=== PATIENT | male | born 1955 | race Caucasian/White ===

== ENCOUNTER 2019-08-28 02:41 | Outpatient (CLI) | payer OTHER, SELFPAY ==
--- NOTE | 2019-08-28 14:15 | DI.DEXA_ITS ---
EXAM: XR DEXA BONE DENSITY W/WO PARAS CLINICAL HISTORY: AT RISK FOR OSTEOPOROSIS/SCREEN FOR OSTEOPOROSIS, Z13.820, Z91.89 TECHNIQUE: COMPARISON: No exams were available for comparison FINDINGS: Lateral Spine Image: Unremarkable. No compression deformities identified. Left hip: Total T-Score: -0.1 Total Z-Score: 0.4 T- and Z-scores: Within normal limits. Lumbar Spine: Total T-Score: 0.0 Total Z-Score: 0.7 T- and Z-scores: Within normal limits. IMPRESSION: No evidence of osteoporosis.
== END 2019-08-28 03:01 ==
PROVIDERS: PCP Student in an Organized Health Care Education/Training Program; Visit Provider Student in an Organized Health Care Education/Training Program
DX: Z13.820 Encounter for screening for osteoporosis (principal)
CPT/HCPCS: 77080

== ENCOUNTER 2019-09-13 01:53 | Outpatient (CLI) | payer OTHER, SELFPAY ==
--- NOTE | 2019-09-13 10:15 | DI.US_ITS ---
EXAM: US SCROTUM CLINICAL HISTORY: left scrotal swelling, N43.3-hydrocele TECHNIQUE: Ultrasound performed using standard protocol. COMPARISON: No exams were available for comparison FINDINGS: Scrotal ultrasound was performed according to the usual protocol. The testes are unremarkable in ech otexture and show normal symmetrical vascular flow, no intra testicular mass identified. There is a small right hydrocele. There is a fluid collection adjacent to the left testis which is s eptated or loculated. I am uncertain whether this may represent septated epididymal head cyst versu s septated left hydrocele. No solid mass identified. No significant abnormality of vascular flow a ssociated with the epididymi. IMPRESSION: Left intrascrotal cyst or hydrocele, no abnormality of the testes identified. DATA REPOSITORY:
== END 2019-09-13 02:13 ==
PROVIDERS: PCP Student in an Organized Health Care Education/Training Program; Visit Provider Nurse Practitioner Gerontology
DX: N50.89 Other specified disorders of the male genital organs (principal); N43.3 Hydrocele, unspecified
CPT/HCPCS: 76870

== ENCOUNTER 2019-09-13 10:08 | Outpatient (CLI) | payer OTHER, SELFPAY ==
[2019-09-14 11:32] LABS: PSA, Screening 0.3 ng/mL (0.0-4.5)
== END 2019-09-13 10:28 ==
PROVIDERS: PCP Student in an Organized Health Care Education/Training Program; Visit Provider Nurse Practitioner Gerontology
DX: N13.8 Other obstructive and reflux uropathy (principal); N40.1 Benign prostatic hyperplasia with lower urinary tract symptoms; Z80.42 Family history of malignant neoplasm of prostate; Z12.5 Encounter for screening for malignant neoplasm of prostate
CPT/HCPCS: 84153

== ENCOUNTER → 2020-09-15 09:15 | Outpatient (BNVA) | payer OTHER, MEDICARE, SELFPAY | PROVIDERS: PCP Student in an Organized Health Care Education/Training Program; Referring Provider Student in an Organized Health Care Education/Training Program; Visit Provider Nurse Practitioner Gerontology | DX: R69 Illness, unspecified | CPT/HCPCS: 99214 ==

== ENCOUNTER 2021-05-22 03:57 | Outpatient (CLI) | payer OTHER, MEDICARE, SELFPAY ==
[2021-05-22 09:21] LABS: ALT 30 U/L (16-63); AST 22 U/L (15-37); Albumin 3.8 g/dL (3.4-5.0); Alkaline Phosphatase 68 U/L (46-116); Anion Gap 5.6 mmol/L (3-11); BUN 15 mg/dL (7-18); Bilirubin, Total 0.5 mg/dL (0.2-1.0); CO2 30.4 mmol/L (21.0-32.0); CREATININE 0.9 mg/dL (0.70-1.30); Calcium 8.7 mg/dL (8.5-10.1); Calculated LDL 117 mg/dL (<100); Chloride 104 mmol/L (98-107); Cholesterol 181 mg/dL (<200); Glucose 95 mg/dL (74-106); HDL Cholesterol 47 mg/dL (40-60); Potassium 4.2 mmol/L (3.5-5.1); Sodium 140 mmol/L (136-145); Total Protein 6.5 g/dL (6.4-8.2); Triglyceride 88 mg/dL (<150)
== END 2021-05-22 03:58 | disposition home or self-care (01) ==
LOC: LBO 03:58
PROVIDERS: PCP Student in an Organized Health Care Education/Training Program; Visit Provider Student in an Organized Health Care Education/Training Program
DX: Z13.220 Encounter for screening for lipoid disorders (principal); I10 Essential (primary) hypertension; N28.9 Disorder of kidney and ureter, unspecified
CPT/HCPCS: 36415; 80053; 80061

== ENCOUNTER → 2021-12-11 12:26 | Outpatient (CLI) | payer OTHER, SELFPAY ==
--- NOTE | 2021-12-11 12:42 | DI.RAD_ITS ---
Exam(s) XR CERVICAL SP COMP W FLEX/EXT EXAM: XR CERVICAL SP COMP W FLEX/EXT CLINICAL HISTORY: CERVICALGIA--M54.2, CERVICAL ROOT DISORDERS--G54.2. TECHNIQUE: 2D digital imaging was performed. COMPARISON: No exams were available for comparison FINDINGS: BONES: No fracture or destructive lesion. Vertebral bodies are unremarkable. DISKS: Mild narrowing of the C4-5 disc space. Moderate narrowing of the C 5 6 and C6-7 disc spaces. Endplate osteophytes are noted at these levels. This causes neural foraminal encroachment, greatest at on the right at C6-7 and on the left at C5-6. ALIGNMENT: Cervical spinal alignment is within normal limits. The odontoid and atlantoaxial articulat ions are normal. SOFT TISSUE: Normal. The lung apices are clear. IMPRESSION: Degenerative disc changes from C4-5 through C6-7 causing bilateral neural foraminal narrowing. DATA REPOSITORY: RADIATION DOSE DELIVERED:
--- NOTE | 2021-12-11 12:43 | DI.RAD_ITS ---
Exam(s) XR SHOULDER LT COMPLETE 2+V EXAM: XR SHOULDER LT COMPLETE 2+V CLINICAL HISTORY: OSTEOARTHRITIS--M19.012, BICIPITAL TENDINITIS--M75.22. TECHNIQUE: 2D digital imaging was performed. Three views. COMPARISON: No exams were available for comparison FINDINGS: BONES: No acute fracture is present. No bony destructive lesion is seen. Prior rotator cuff tendon r epair. Minimal spurring at greater and lesser tuberosities. JOINTS: No dislocation present. No significant spurring at the AC joint. Glenohumeral joint space i s well maintained. SOFT TISSUE: Normal. No tendon or joint space calcifications are seen. IMPRESSION: Mild degenerative changes. DATA REPOSITORY: RADIATION DOSE DELIVERED:
--- OUTSIDE RECORDS SUMMARY | 2021-12-11 13:05 | XMS_ITS | Encounter Summary ---
:1955 Author Organization [facility] [place] [address] Care Team Providers Name Role Phone Saida Green DO Primary Care Provider Encounter Details Date Type Department Care Team Description 09/12/2019 Telephone Audiology at [facility] Pamela Ku [facility] [place] [address] Social History Tobacco Use Types Packs/Day Years Used Date Never Smoker Sex Assigned at Date Recorded Not on file documented as of this encounter Miscellaneous Notes Telephone Encounter - Pamela Ku - 09/12/2019 10:10 AM EDT Called patient to schedule [facility]. Patient is pursuing Hearing Aids closer to home so appointments not needed. documented in this encounter Plan of Treatment Not on filedocumented as of this encounter Visit Diagnoses Not on filedocumented in this encounter Care Teams Print And Pattern Designer Relationship Specialty Start Date End Date Saida Green DO PCP - General Family Medicine 01/19/[address] [place] [address] documented as of this encounter
--- OUTSIDE RECORDS SUMMARY | 2021-12-11 13:05 | XMS_ITS | Encounter Summary ---
:1955 Author Organization [facility] Address [address] [place] [address] Care Team Providers Name Role Phone Saida Green DO Primary Care Provider Reason for Visit Consultation (Routine) - Specialty Diagnoses / Procedures Referred By Contact Refer red To Contact Audiology Diagnoses Tinnitus, bilateral Otalgia, right ear Unspecified hearing loss, unspecified ear Saida Green DO Perez, Ashley N, AUD [address] [place], [place] [address] [place] [address] Fax: Referral ID Status Reason Start Date Expiration Date Visits V isits Requested Authorized [id number] Consult, Test 08/21/2019 08/20/2020 [facility] PCP Updated and/or Approved Encounter Details Date Type Department Care Team Description 08/23/2019 Office Visit [place] [facility] Ciarra Esquivel, Tinnitus of right ear; [facility] Right ear pain; [facility] Bilateral asymmetric sensori neural hearing loss [facility] [id number] AUDIOLOGY DEPT [phone] [place], [place] [address] Social History Tobacco Use Types Packs/Day Years Used Date Never Smoker Sex Assigned at Date Recorded Not on file documented as of this encounter Progress Notes Ciarra Esquivel, QUIQUE - 08/23/2019 11:00 AM EDT AUDIOLOGY SECTION AUDIOLOGIC EVALUATION Name: Unruly Vega Age: 64 y.o. Referring provider: Saida Green DO Date: 08/23/2019 Reason for referral/visit: Evaluation of hearing loss History: Mr. Vega is a new patient to the Audiology Section. He dropped a piece of metal on the cement floor next to his right ear last summer 2018. He immediately noted tinnitus, otalgia and decreased hearing. Today he reported that he still has tinnitus even now, though it is no longer as bothersome. The right ear had pain for a while afterwards. He had a hearing test through [facility] on 08/29/2018which revealed slightly asymmetric SNHL and he was evaluated by Dr. Arenas in ENT. Otologic symptoms: -Middle ear pathology: Denied -Dizziness: Denied -Familial hearing loss: Denied -Trauma of the head/neck: Denied -Surgery of the head/neck: Denied -Noise exposure: wearing HPDs now but not in the past. He uses power tools, has a large rob to ringoutstide for the dog that is very loud. He plugs his right ear when he rings the rob. EVALUATION: (please refer to audiogram) RESULTS/IMPRESSIONS: ?? Otoscopy was unremarkable, bilaterally. ?? Tympanometry indicated normal middle ear system function bilaterally. ?? Audiometric testing was consistent with asymmetric moderate high frequency sensorineural hearing loss L>R with a 25 dB asymmetry R>L. Word recognition was also slightly asymmetric with 84% on the right and 100% on the left at an elevated presentation level of 75-80 dB HL. ?? Hearing sensitivity is slightly poorer today compared to last year. ?? QuickSIN test was administered. He scored a +0.5 dB SNR loss. ?? The QuickSIN is a speech in noise test that measured the ability to hear in noise. Speech understanding in noise cannot be reliably predicted from the pure tone audiogram. SNR loss is the increased rqxvsg-yx-jvmmx ratio required by an individual to understand speech in noise, as compared to normal performance. The recorded sentences represent a realistic situation of a social gathering in which the listern may tune out the target talker and tune in one or more of the background talkers. ?? A normal hearing person requires about +2 dB SNR (target talker 2 dB louder than background babble talkers) to correctly repeat 50% of the fernandez words on the QuickSIN. Therefore, normal/near normal performance on the QuickSIN is a score of 0-3 dB SNR loss. A SNR loss of 3-7 dB indicates a mild SNR loss. A score of 7-15 dB indicates a moderate SNR loss. Greater than 15 dB indicates a severe SNR loss. ?? Today's results indicated substantial auditory based communication deficits. Individuals with high frequency hearing loss experience difficulty hearing clearly or accurately while listening in everyday environments including background noise. Given the degree and configuration of hearing loss, diffi culties are expected in hearing the high-frequency speech sounds of 's', 'f', and 'th'. Unruly Jaquez rely upon visual cues to fill in the gaps when speech sounds are not clear/audible in runningspeech. ?? Unruly Vega is a good candidate for amplification and general aural rehabilitation. He was givena packet [place] [facility] [place]. He would prefer to come here to for hearing aids. RECOMMENDATIONS: 1. Return to clinic for hearing aid consultation appointment. 2. Annual re-evaluation to monitor asymmetry; sooner if concerns arise. He has already been evaluated by ENT. 3. Use of communication strategies in noisy environments (i.e speaking face to face and reducing background noise). 4. Use of hearing protection when exposed to hazardous noise. Please do not hesitate to contact this Section at [phone] if there are questions regarding thisreport or its recommendations. Quique Babcock Board Cert[place] [address] Attachment: audiogram CC: Saida Green DO documented in this encounter Plan of Treatment Not on filedocumented as of this encounter Procedures Procedure Name Priority Date/Time Associated Comments Diagnosis COMPREHENSIVE HEARING Routine 08/23/2019 11:13 Re sults for this TEST AM EDT procedure are i n the results section. documented in this encounter Results Comprehensive hearing test (08/23/2019 11:13 AM EDT) Specimen (Source) Anatomical Collection Method Collection Time Re ceived Time Location / / Volume Laterality 08/23/2019 11:13 AM EDT Narrative [facility] - 08/23/2019 11:13 AM EDT See full report. Recorded MEEI. QuickSIN of +0.5 dB SNR loss at 75 dB HL. Procedure Note Unknown - 08/23/2019Formatting of this n ote might be different from the original. See full report. Recorded MEEI. QuickSIN of +0.5 dB SNR loss at 75 dB HL. Unknown AUDIOLOGY SERVICES ORDERABLE S Performing Organization Address City/State/ZIP Code Phon e Number [facility] documented in this encounter Visit Diagnoses Diagnosis Tinnitus of right ear Unspecified tinnitus Right ear pain Otalgia, unspecified Bilateral asymmetric sensorineural heari ng loss documented in this encounter Care Teams Materials Technician Relationship Specialty Start Date End Date Saida Green DO PCP - General Family Medicine 01/19/[address] [place] [address] documented as of this encounter
--- OUTSIDE RECORDS SUMMARY | 2021-12-11 13:05 | XMS_ITS | Encounter Summary ---
:1955 Author Organization [facility] [place] [address] Care Team Providers Name Role Phone Saida Green Primary Care Provider Reason for Visit Reason Comments Follow-up Encounter Details Date Type Department Care Team Description 01/19/2019 Office Visit Dermatology at [facility], Oliver u nguium; Juanito LEWIS Seborrheic keratosis; [address] [facility] Seborrheic dermatitis Silvestre B DERMATOLOGY [place], [place] [id number] [phone] Social History Tobacco Use Types Packs/Day Years Used Date Never Smoker Sex Assigned at Date Recorded Not on file documented as of this encounter Progress Notes Nathanael Marquis MD - 01/19/2019 8:45 AM EDT PROBLEM: 1. Skin checkup. 2. Left toenail tinea unguium. Unruly follows up and is now 63. He is concerned about his left hallux which continues to be a problem and about a spot on his right medial cheek, and about flaking and peeling behind his ears. Physical examination reveals ongoing tinea unguium of the left hallux. It is not completely responded and only partially responded to the thymol 3% in ethyl alcohol. He has a small seborrheic keratosisdeveloping on the right medial cheek. He has minor erythema scaling flaking consistent with seborrheic dermatitis in the conchal bowls of the ears and on the postauricular scalp bilaterally. Patient has type III Arenas pigmentation and he is a brown eyes. Assessment plan: Tinea unguium left toenail 1. Again discussed the option of more aggressive therapies 2. Both was agreed not to pursue this route 3. Reassured patient that no treatment is actually necessary. This is does not pose any medical riskto him. And he agrees Seborrheic keratosis right medial cheek 1. Discussed diagnosis 2. Patient reassured Seborrheic dermatitis, mild, ears and postauricular ears 1. Recommend use of an anti-dander shampoo for this 2. Also discussed the option of 1% cortisone cream to control it Benign facial examination 1. Patient reassured about the benign solar lentigos and early seborrheic keratoses 2. Return to clinic here as needed. documented in this encounter Plan of Treatment Not on filedocumented as of this encounter Visit Diagnoses Diagnosis Tinea unguium Dermatophytosis of nail Seborrheic keratosis Other seborrheic keratosis Seborrheic dermatitis Seborrheic dermatitis, unspecified documented in this encounter Care Teams Lean Manufacturing Specialist Relationship Specialty Start Date End Date Saida Green DO PCP - General Family Medicine 01/19/[address] [place] [address] documented as of this encounter
--- OUTSIDE RECORDS SUMMARY | 2021-12-11 13:05 | XMS_ITS | Encounter Summary ---
:1955 Author Organization [facility] [place] [address] Care Team Providers Name Role Phone Carlos Thompson MD Primary Care Provider Reason for Visit Reason Comments Skin Check Nail Problem Encounter Details Date Type Department Care Team Description 08/30/2016 Office Visit Dermatology at [facility] Nathanael Marquis MD Tinea unguium; [address] Sil[place]re [address] Solar [place] [address] [place] [address] [phone] (Wo rk) Social History Tobacco Use Types Packs/Day Years Used Date Never Smoker Sex Assigned at Date Recorded Not on file documented as of this encounter Progress Notes Nathanael aMrquis MD - 08/30/2016 11:30 AM EDT PROBLEM: 1. Skin checkup. 2. Left toenail tinea unguinum. Unruly is a 61-year-old gentleman whose I see. He would like to have a general skin checkup. Also he is bothered by discoloration of the medial left upper corner of his left hallux. He is referred today by Dr. Thompson. He does not have any personal or family history of skin cancer or melanoma. Physical examination reveals a pleasant 51-year-old gentleman who has brown eyes and graying dark hair. He has a number of solar lentigos present over the forehead, his cheeks, dorsal hands and forearms. There is no evidence of any malignant lesions. Examination of the head and the neck, the chest, the back, hands, arms, forearms, thigh and the calves is otherwise unremarkable. Also the buttocks where he has a single compound intradermal nevus on the left upper medial aspect of the buttocks. Examination of the toenail reveals whitish subungual hyperkeratotic debris and associated onycholysis of the upper medial aspect of one-third of the nail in a roughly triangular-like area. A/P: Benign skin examination. a. Reassured patient about benign skin examination today. b. Reinforced sun avoidance precautions which patient is trying to follow. 2. Tinea unguinum. a. Discussed the option of thymol 2% ethyl alcohol versus oral therapies. Would recommend first that we begin thymol and patient agrees. b. Apply thymol on a b.i.d. basis for 3 months using supplied brush that he can get with the prescription [facility]. Patient was given a prescription which he will fill there. They will dispense 30 mL with 5 refills. c. If this is not effective could consider the option of oral Lamisil. Patient does not think he would want to go that route. I would be happy to give him a 3-month trial, however, if he so desires. Return to clinic here p.r.n. Cc: Carlos Thompson MD documented in this encounter Plan of Treatment Not on filedocumented as of this encounter Visit Diagnoses Diagnosis Tinea unguium Dermatophytosis of nail Solar lentigo Other dyschromia documented in this encounter Care Teams Institution Librarian Relationship Specialty Start Date End Date Carlos Thompson MD PCP - General General Internal Medicine 08/30/[address] [place] [address] documented as of this encounter
--- OUTSIDE RECORDS SUMMARY | 2021-12-11 13:06 | XMS_ITS | Encounter Summary ---
:1955 Author Organization [facility] Address [address] [place] [address] Care Team Providers Name Role Phone Nathanael Silva MD Primary Care Provider Encounter Details Date Type Department Care Team Description 06/01/2016 Hospital Encounter [facility]- Ramya Unknown, Provider, [facility] [address] [phone] [place] [address] (Work) [phone] Social History Tobacco Use Types Packs/Day Years Used Date Never Assessed Alcohol Use Standard Drinks/Week Comments Yes 0 (1 standard drink = 0.6 oz pure alcoho l) 2-3 glasses most days Sex Assigned at Date Recorded Not on file documented as of this encounter Medications at Time of Discharge Medication Sig Dispensed Refills Start Date End Date aspirin chewable 81 mg Take 81 mg by mouth 0 tablet daily. DOCOSAHEXANOIC ACID/EPA Take by mouth. 0 (FISH OIL ORAL) ibuprofen (MOTRIN) 200 mg Take 200 mg by 0 tablet mouth every 6 hours. MEN'S MULTI-VITAMIN ORAL Take by mouth. 0 mometasone (NASONEX) 50 2 Sprays by Nasal 0 mcg/actuation nasal spray route daily. SAW PALMETTO XTR/ZINC Take by mouth. 0 PICOLIN (SAW PALMETTO EXTRACT ORAL) documented as of this encounter Discharge Disposition Disposition Code Departure Means Destination Home or Self Residential documented in this encounter Plan of Treatment Not on filedocumented as of this encounter Visit Diagnoses Not on filedocumented in this encounter Care Teams Railroad Car Inspector Relationship Specialty Start Date End Date Nathanael Silva MD PCP - General 06/02/11 06/02/16 [address] [place] [address] documented as of this encounter
--- OUTSIDE RECORDS SUMMARY | 2021-12-11 13:06 | XMS_ITS | Encounter Summary ---
:1955 Author Organization [facility] Address [address] [place] [address] Care Team Providers Name Role Phone Nathanael Silva MD Primary Care Provider Encounter Details Date Type Department Care Team Description 07/02/2011 Abstract [facility] Dickinson PA Upper Extremity Program - [facility] Jailene [place]am [place], [place] [address] Social History Tobacco Use Types Packs/Day Years Used Date Never Assessed Alcohol Use Standard Drinks/Week Comments Yes 0 (1 standard drink = 0.6 oz pure alcoho l) 2-3 glasses most days Sex Assigned at Date Recorded Not on file documented as of this encounter Plan of Treatment Not on filedocumented as of this encounter Visit Diagnoses Not on filedocumented in this encounter Care Teams Joint Yarner Relationship Specialty Start Date End Date Nathanael Silva MD PCP - General 06/02/11 06/02/16 [address] [place] [address] documented as of this encounter
--- OUTSIDE RECORDS SUMMARY | 2021-12-11 13:06 | XMS_ITS | Encounter Summary ---
:1955 [address] [facility] Address [address] [place] [address] Care Team Providers Name Role Phone Unavailable Primary Care Provider Unavailable Encounter Details Date Type Department Care Team Description 08/03/2006 Results Only [facility] - Eleno Quinonez MD conversion [address] [facility] [address] [place] [address] [place] [address] Social History Tobacco Use Types Packs/Day Years Used Date Never Assessed Sex Assigned at Date Recorded Not on file documented as of this encounter Plan of Treatment Not on filedocumented as of this encounter Procedures Procedure Name Priority Date/Time Associated Diagnosis Comme nts SURGICAL PATHOLOGY Routine 08/03/2006 0:00 EDT Re sults for this procedure are i n the results section. documented in this encounter Results SURGICAL PATHOLOGY (08/03/2006 0:00 EDT) Pathology Report: SURGICAL PATHOLOGY REPORT JEAN A SUMANTH Reports generated via electronic interface contain sienna ginal data; LAB however they are lacking the format of the original re port. Caution should be taken when reading/interpreting unfo rmatted reports. Name: ? UNRULY JACOB ? Accession #: ? [id number] ? : ? 1955 (Age: 51) ??M ? Collect Date: ? 08/03/2006 ? Location: ? [facility] ? Receive Date: ? 08/05/19 07 ? Provider: ELENO LAURA MD Copy to: ? Final Pathologic Diagnosis: A. ?Colon, at 85 cm, polyp, biopsy: 1. ?Tubular adenoma (3 pieces); no high g rade dysplasia. B. ?Colorectum, at 10 cm, polyp, biopsy: 1. ?Hyperplastic polyp (2 pieces); no hernan noma. Document reviewed and electronically signed by: Jack Weiner MD Report ??Date: 08/08/2006 17:16 By the signature above, the attending physician certif ies that he/she has personally conducted a gross and/or microscopic examin ation of the described specimens and rendered or confirmed the above diagnosi s. Specimen(s) Received: A. ?Polyps @ 85 cm B. ? Polyp @ 10 cm, x2 Clinical History: ? Polypoid lesions 85 cm, 10 cm; screening colono scopy Gross Description: ? Received in Hollande' s fixative labelled Zuk and A ??polyps at 85 cm are three pieces of tissue which range from 0.3 x 0.2 x 0.2 cm and 0.2 x 0.2 x 0.1 cm which are submitted intact as (A). Received in Hollande's fixative labelled Zuk and B ??polyp at 10 cm x2 are two pieces of tissue, each of which measure 0.3 x 0.2 x 0.2 cm which are submitted intact as (B). /tiffani End of Report Specimen Performing Organization Address City/State/ZIP Code Phon e Number [facility] [address] [place] [address] [facility] [address] [place] [address] documented in this encounter Visit Diagnoses Not on filedocumented in this encounter
--- OUTSIDE RECORDS SUMMARY | 2021-12-11 13:06 | XMS_ITS | Clinical Summary ---
:1955 Author Organization [facility] Address [address] [place] [address] Care Team Providers Name Role Phone Carlos Thompson MD Primary Care Provider Allergies Active Allergy Reactions Severity Noted Date Comments Sulfa (Sulfonamide Antibiotics) 2 Medications Medication Sig Dispensed Refills Start Date End Date Status ibuprofen (MOTRIN) 200 Take 200 mg by 0 Active mg tablet mouth every 6 hours. aspirin chewable 81 mg Take 81 mg by 0 Active tablet mouth daily. MEN'S MULTI-VITAMIN ORAL Take by mouth. 0 Active DOCOSAHEXANOIC ACID/EPA Take by mouth. 0 Active (FISH OIL ORAL) SAW PALMETTO XTR/ZINC Take by mouth. 0 Active PICOLIN (SAW PALMETTO EXTRACT ORAL) mometasone (NASONEX) 50 2 Sprays by 0 Active mcg/actuation nasal Nasal route spray daily. 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 Migraine since adolescence Family History Medical History Relation Name Comments Allergies Brother Heart Attack Brother Stroke Brother Heart Attack Father Relation Name Status Comments Brother Father Social History Tobacco Use Types Packs/Day Years Used Date Never Assessed Alcohol Use Standard Drinks/Week Comments Yes 0 (1 standard drink = 0.6 oz pure alcoho l) 2-3 glasses most days Sex Assigned at Date Recorded Not on file Plan of Treatment Health Maintenance Due Date Last Done Comments Fall Risk Screening 07/09/2020 Advance Directives For more information, please contact: [phone] Documents on File Type Date Recorded Patient Controls Project Engineer Explanati on Advance Directives and Living Will Power of Commissary Clerk Care Teams Police Liaison Relationship Specialty Start Date End Date Carlos Thompson MD PCP - General 06/03/16 [address] [place] [address]
--- OUTSIDE RECORDS SUMMARY | 2021-12-11 13:06 | XMS_ITS | Encounter Summary ---
:1955 Author Organization [facility] Address [address] [place] [address] Care Team Providers Name Role Phone Unavailable Primary Care Provider Unavailable Encounter Details Date Type Department Care Team Description 06/10/2005 Hospital Encounter [facility] Emergency, Emergency Department - MD [facility] [address] [place] [address] [place] [address] Social History Tobacco Use Types Packs/Day Years Used Date Never Assessed Sex Assigned at Date Recorded Not on file documented as of this encounter Discharge Disposition Disposition Code Departure Means Destination Home or Self Care documented in this encounter Plan of Treatment Not on filedocumented as of this encounter Procedures Procedure Name Priority Date/Time Associated Diagnosis Comme nts RAD US EXTREMITY 06/10/2005 21:29 Results for this NON VASCULAR EST procedure are i n the results section. CT LOWER EXTREMITY 06/10/2005 19:24 Resul ts for this WO CONTRAST EST procedure are i n the results section. documented in this encounter Results RAD US EXTREMITY NON VASCULAR (06/10/2005 21:29 EST) Anatomical Region Laterality Modality Other Specimen Narrative [facility] - 10/05/2008 10 :21 EDT POSSIBLE FOREIGN BODY. PAIN. R/O FOREIGN BODY. HISTORY: History of foreign body in the right upp er anterior thigh. EXAM: Right upper thigh ultrasound to evaluate for retained foreign body. FINDINGS: Images of the right upper anterior thigh in the area of traumatic injury to the skin demonstrates a linear echogenic structure which correlates with a foreign body. ??It vincenzo sures 6 cm. long and 4 mm. thick. ??It is located at the incision s ite on the skin and angles from there medially and superiorly towar d the groin. ??The proximal portion of the foreign body at the incis ion site is approximately 2 cm. deep and the distal aspect of the fo reign body closest to the groin is approximately 2.8 cm. deep. ??D oppler flow was placed over the area of the location of the foreign body and no major vascular structures are seen. IMPRESSION: 1. ?A 6 cm. ret ained foreign body consistent with splinter. D: ? 06/11/05 T: ? 06/11/05 /amn I have personally reviewed the images an d the above interpretation and agree with the findings. Procedure Note Janene Cohen DMD / Davin Patel MD - 10/05/2008 POSSIBLE FOREIGN BODY. PAIN. R/O FOREIG N BODY. HISTORY: History of foreign body in the right upp er anterior thigh. EXAM: Right upper thigh ultrasound to evaluate for retained foreign body. FINDINGS: Images of the right upper anterior thigh in the area of traumatic injury to the skin demonstrates a linear echogenic structure which correlates with a foreign body. It measu res 6 cm. long and 4 mm. thick. It is located at the incision sit e on the skin and angles from there medially and superiorly towar d the groin. The proximal portion of the foreign body at the incis ion site is approximately 2 cm. deep and the distal aspect of the fo reign body closest to the groin is approximately 2.8 cm. deep. Dop pler flow was placed over the area of the location of the foreign body and no major vascular structures are seen. IMPRESSION: 1. A 6 cm. retained foreign body consist ent with splinter. /amn I have personally reviewed the images an d the above interpretation and agree with the findings. Performing Organization Address City/State/ZIP Code Phon e Number [facility] [address] [facility] [address] [facility] [address] [place], [place] [address] [address] [address] LOWER EXTREMITY WO CONTRAST (06/10/2005 19:24 EST) Anatomical Region Laterality Modality Other Specimen Narrative [facility] - 10/05/2008 10 :21 EDT FORIEGN BODY, PAIN CT OF THE RIGHT THIGH WITHOUT CONTRAST. CLINICAL HISTORY: Foreign body and pain. TECHNIQUE: Axial images of the right thi gh were obtained from the lesser trochanter to the mid thigh. ??Co robb and sagittal reformatted images were done. FINDINGS: ??There is no evidence for a f oreign body. There is some air in the soft tissues on the anterior aspe ct of the right thigh with infiltration of the subcutaneous fat. No radiopaque foreign body is present. ??The muscles have a normal nawaf earance. D: ??06/11/05 T: ??06/14/05 /lds. Procedure Note Xiomara Cavazos MD - 10/05/2008 FORIEGN BODY, PAIN CT OF THE RIGHT THIGH WITHOUT CONTRAST. CLINICAL HISTORY: Foreign body and pain. TECHNIQUE: Axial images of the right thi gh were obtained from the lesser trochanter to the mid thigh. Mino nal and sagittal reformatted images were done. FINDINGS: There is no evidence for a for eign body. There is some air in the soft tissues on the anterior aspe ct of the right thigh with infiltration of the subcutaneous fat. No radiopaque foreign body is present. The muscles have a normal appea whit. /lds. Performing Organization Address City/State/ZIP Code Phon e Number [facility] [address] [facility] [address] [facility] [address] [place], [place] [address] documented in this encounter Visit Diagnoses Not on filedocumented in this encounter
--- OUTSIDE RECORDS SUMMARY | 2021-12-11 13:06 | XMS_ITS | Encounter Summary ---
:1955 Author Organization [facility] system Address [address] [place] [address] Care Team Providers Name Role Phone Nathanael Silva MD Primary Care Provider Encounter Details Date Type Department Care Team Description 06/01/2016 Results Only [facility] Ervin Rivers, DO [address] [facility] [address] [place], [place] [id number] (Wo rk) Social History Tobacco Use Types [...] Procedure Name Priority Date/Time Associated Diagnosis Comme [facility] SURGICAL PATHOLOGY Routine 06/01/2016 15:44 Resul ts for this EDT procedure are i n the results section. documented in this encounter Results SURGICAL PATHOLOGY (06/01/2016 15:44 EDT) Pathology Report: SURGICAL PATHOLOGY REPORT [facility] Reports generated via electronic interface contain sienna ginal data; LABORATORY however they are lacking the format of the original re port. SERVICES Caution should be taken when reading/interpreting unfo rmatted reports. Name: ? UNRULY JACOB ? Accession #: ? [id number] ? : ? 1955 (Age: 6 0) ??M ? Collect Date: ? 06/01/2016 ? Location: ? [facility] ? Receive Date: ? 06/03/19 17 ? Provider: REVIN RIVERS DO Copy to: VINICIUS PINEDO MD ? Final Pathologic Diagnosis: COLON, SIGMOID, POLYP, BIOPSY: - Colonic mucosa (1) with surface epithe lial hyperplastic change; negative for adenoma. - Portions of fecal material. Document reviewed and electronically signed by: Jack Weiner MD Report ??Date: 06/03/2016 12:15 By the signature above, the attending physician certif ies that he/she has personally conducted a gross and/or microscopic examin ation of the described specimens and rendered or confirmed the above diagnosi s. Specimen(s) Received: Sigmoid polyp Clinical History: Screening Gross Description: ? Received in formalin labelled with proper patient identification (initials Z, E) and sigmoid polyp is a cha-brow n nodular tissue (0.6 x 0.3 x 0.2 cm). Entirely submitted in 1. CHELSEA Arita (ASCP) 06/02/2016 4:33 PM End of Report Specimen Performing Organization Address City/State/ZIP Code Phon e Number [facility] [address] [place] [address] SERVICES documented in this encounter Visit Diagnoses Not on filedocumented in this encounter Care Teams Insulator Apprentice Relationship Specialty Start Date End Date Nathanael Silva MD PCP - General 06/02/11 06/02/16 [address] [place] [address] documented as of this encounter
--- OUTSIDE RECORDS SUMMARY | 2021-12-11 13:06 | XMS_ITS | Encounter Summary ---
:1955 Author Organization [facility] Address [address] [place] [address] Care Team Providers Name Role Phone Unavailable Primary Care Provider Unavailable Encounter Details Date Type Department Care Team Description 06/10/2005 Office Visit [facility] - Concepción Walton MD Maple conversion [address] [place] [address] [address], [place] [id number] (Wo rk) Social History Tobacco Use Types Packs/Day Years Used Date Never Assessed Sex Assigned at Date Recorded Not on file documented as of this encounter Progress Notes Javier Walton MD - 05/14/2009 1820 EST Department - Physician Summary Registration Date/Time: 06/10/2005 15:40 Historian - patient. HISTORY OF PRESENT ILLNESS Chief Complaint- Injury to right leg. Theinjury happened just prior to arrival. The patient sustained a puncture wound from a splinter (was carrying a sheet o f plywood and drove asliver through his pant leg). Occurred at home. Patient is experiencing moderate pain. No other injury. REVIEW OF SYSTEMS The patient sustained a laceration. Foreign body is suspected. He complains of pain on weight bearing. He has had swelling. No tingling, weakness or numbness. PAST HISTORY Negative. Tetanus immunization status is unknown. Medications: See nurses notes. Allergies: See nurses notes. SOCIAL HISTORY Nonsmoker. No alcohol use. ADDITIONAL NOTES The nursing notes have been reviewed. PHYSICAL EXAM Appearance: Alert. Patient in mild distress. With movement only. Vital Signs: Have been reviewed - Head: Head atraumatic. CVS: Pulses normal. Respiratory: No respiratory distress. Extremities: Lower extremity soft-tissue tenderness present (over sliver/hard prominence). Right thigh: moderate tenderness and deformity located in the medial aspect of upper thigh. Extremities otherwise negative. Gait: Normal gait. Neuro, Vascular, and Tendons: Vascular status intact. No pulse deficit present. Sensation intact. Motor intact. Tendon function intact. Neuro: Oriented X 3. No motor deficit. No sensory deficit. LABS, X-RAYS, AND EKG Note - Special Studies: Ct right leg nml--orfered after discussion with dr hills with radiology, whoagrees with a ct scan. After a neg ct, rads resident requests anther study--us bettter sesitivity us shows large fb from previous incision to neat the inguinal lig--no large vessels near fb per radioligy. PROGRESS AND PROCEDURES Removal of Soft Tissue Foreign Body: Wood. Located in the right thigh. Prior to the procedure the risks, benefits and alternatives to the procedure were explained. Local anesthesia provided using 1% lidocaine. Wound prepped with Betadine and sterile field employed. Wound explored and margins extended. Incision made with a #15 blade. Foreign body visualized, palpated and removed using forceps. Wound irrigated. The foreign body removal was moderately difficult. Procedural sedation not employed. Dressing applied. Tetanus immunization given. Removal of Soft Tissue Foreign Body #2: Wood. Prior to the procedure the risks, benefits and alternatives to the procedure were explained. Anesthesia provided using 1% lidocaine. Wound prepped with Betadine. Wound explored and margins extended. Incision made with a #15 blade. Foreign body palpated andremoved using forceps. Wound irrigated. Perforned with the orthopedics resident--Dr ojeda. The foreign body removal was moderately difficult. Dressing applied. Laceration Repair: Location: right thigh. Length: 2.2 cm. Wound depth/shape- subcutaneous. Exam note: incision during fb removal. Distal neuro/vascular/tendonstatus normal. Anesthesia provided using 1% lidocaine. Closure of superficial layer: interrupted 3-0nylon. Dressing applied. Laceration Repair #2: Location: right thigh. Length: 1 cm. Wound depth/shape- subcutaneous. Distal neuro/vascular/tendon status normal. Anesthesia provided using lidocaine. Prepped with Betadine. Wound irrigated with normal saline. Closure of superficial layer: 3-0 nylon. Dressing applied. E.D. Course: :54. Dr Ojeda in to eval for FB removal. FB found after neg ct and pos us. . Patient/family counseled. Disposition: Discharged home in good condition and improved condition. Discharged home in fair condition and improved condition. CLINICAL IMPRESSION Removal of wooden soft tissue foreign body. (It is unlikely that there is any large piece of wood left, but not impossible. Watch for infection). INSTRUCTIONS Elevate affected areas above chest level. Continue current medications. Important: INFECTION: Watch for signs of infection (increasing heat and redness, pus-like drainage, swelling, or increased pain). Return or see your doctor if these signs occur. TETANUS: You were givena tetanus shot in the emergency department. Make a note for future reference. Prescription Medications: Cephalexin 500 mg: take 1 tab orally every 8 hours for 5 days. No refill. Percocet 5 mg/325 mg: take 1-2 tablets orally every 6 hours as needed for pain. Dispense ten (10). Follow-up: Return to the emergency department for signs of infection as needed. Follow up with your doctor in 3-5 days for a recheck OR also if you develop signs of infection. (Electronically signed by Josiah Walton M.D. 06/12/2005 14:46) Department - Nursing Summary Registration Date/Time: 06/10/2005 15:40 TRIAGE Initial Assessment Triage time 15:41 . Acuity: LEVEL 3. BP: 139 / 95. HR: 84. RR: 14. --154 Marielena Varma R.N. Medications None. --1542 Marielena Varma R.N. Allergies ( sulfa). --1542 Marielena Varma R.N. Chief Complaint: INJURY TO RIGHT THIGH. The patient has foreign material (approx 2 sliver of wood). Pain level now: 8/10. PAST HX: Negative. SOCIAL HX: Nonsmoker. Arrived by private vehicle. Historian: patient. --1542 Marielena Varma R.N. SOCIAL HX: Occasional alcohol use. No report of abuse. --1545 Marielena Varma R.N. PAST HX: Last tetanus: ( may 2000). --1552 Marielena Varma R.N. NURSING PROGRESS NOTES Progress DT (DIPHTHERIA and TETANUS) 0.5 mL lot # [id number] exp date: 09/24 IM left anterior lateral thigh. . --1633 Richard Chauhan R.N. PERCOCET 1 tab PO. IBUPROFEN 800 mg PO. . --1633 Richard Chauhan R.N. Patient transported to [place] by stretcher with tech. --1917 Rachel Burns R.N. CEPHALEXIN 500 mg PO. . --1946 Benny Thomas The patient reports no complaints and the patient is calm and resting quietly. Patient returned fromCT by stretcher with tech. --1946 Rachel Burns R.N. ( pt in ultrasound ). --2104 Rachel Burns R.N. ( ortho at bedside). Patient returned from sonogram by stretcher with tech. --2142 Rachel Burns R.N. ( pt with 2 wood splinters removed by ortho, pt with wound dressed, ). The patient is calm and resting quietly. --2329 Rachel Burns R.N. DISPOSITION / DISCHARGE Condition at departure: improved. Fall risk assessment completed. No fall risk identified. No learning barriers present. Discharge instructions reviewed with the patient. Reviewed medication (cephalexin, percocet starter packs). Patient verbalized understanding. Written instructions provided in Cameroonian. The patient was discharged home and accompanied by senior category manager. The patient left the Emergency Department in a wheelchair and via private vehicle. Brass Instrument Repair Technician driving. --2330 Rachel Burns R.N. BP: 134 / 60 sitting. HR: 69. RR: 16. --2335 Benny Moreau R.N., R.N. Kimberly Nicolet R.N. Locked/Released at 06/10/2005 23:36 by Rachel Burns R.N. documented in this encounter Plan of Treatment Not on filedocumented as of this encounter Visit Diagnoses Not on filedocumented in this encounter
--- OUTSIDE RECORDS SUMMARY | 2021-12-11 13:06 | XMS_ITS | Encounter Summary ---
:1955 Author Organization [facility] Address [address] [place] [address] Care Team Providers Name Role Phone Carlos Thompson MD Primary Care Provider Encounter Details Date Type Department Care Team Description 09/13/2019 Lab Requisition [facility] Outr Resulting Lab, Pathology & Laboratory Provider [facility] [address] [id number] Social History Tobacco Use Types Packs/Day Years Used Date Never Assessed Alcohol Use Standard Drinks/Week Comments Yes 0 (1 standard drink = 0.6 oz pure alcoho l) 2-3 glasses most days Sex Assigned at Date Recorded Not on file documented as of this encounter Plan of Treatment Not on filedocumented as of this encounter Procedures Procedure Name Priority Date/Time Associated Comments Diagnosis PSA TOTAL, Routine 09/13/2019 10:12 Results for this DIAGNOSTIC EDT procedure are i n the results section. documented in this encounter Results PSA TOTAL, DIAGNOSTIC (09/13/2019 10:12 EDT) Pathologist Sig nature PSA 0.3 0.0 - 4.5 ng/mL [facility] Specimen Blood - Venous blood (substance) Narrative [facility] - 09/14/2019 11:27 EDT NOTE: Serum PSA concentration should not be in terpreted as absolute evidence for the presence or absence of malignant disease. Assayed on Siemens ADVIA Centaur XPT usi ng chemiluminescent technology.??Values obtained by using different assay methods cannot be used interchangeably. Performing Organization Address City/State/ZIP Code Phon e Number [facility] [address] [place] [address] SERVICES documented in this encounter Visit Diagnoses Not on filedocumented in this encounter Care Teams Java Technical Architect Relationship Specialty Start Date End Date Carlos Thompson MD PCP - General 06/03/[address] [place] [address] documented as of this encounter
== END ==
PROVIDERS: PCP Student in an Organized Health Care Education/Training Program; Visit Provider Student in an Organized Health Care Education/Training Program
DX: G54.2 Cervical root disorders, not elsewhere classified (principal); M54.2 Cervicalgia; M19.012 Primary osteoarthritis, left shoulder; M75.22 Bicipital tendinitis, left shoulder
CPT/HCPCS: 72052; 73030

== ENCOUNTER → 2023-02-03 04:09 | Outpatient (CLI) | payer OTHER, SELFPAY ==
--- NOTE | 2023-02-03 12:57 | DI.RAD_ITS ---
Exam(s) XR FOOT RT COMPLETE EXAM: XR FOOT RT COMPLETE CLINICAL HISTORY: rt foot pain, m79.671. TECHNIQUE: 2D digital imaging was performed. Three views. COMPARISON: CR XR FOOT LT COMPLETE from 02/03/2023 FINDINGS: BONES: No acute fracture is present. No bony destructive lesion is seen. Small heel spurs. JOINTS: No dislocation present. No significant degenerative changes. Plantar arch is maintained. SOFT TISSUE: Normal. IMPRESSION: Small heel spurs. DATA REPOSITORY: RADIATION DOSE DELIVERED:
--- NOTE | 2023-02-03 12:57 | DI.RAD_ITS ---
Exam(s) XR FOOT LT COMPLETE EXAM: XR FOOT LT COMPLETE CLINICAL HISTORY: Pain in left foot,hallux rigidus, hammer toe, m20.42,m20.22. TECHNIQUE: 2D digital imaging was performed. Three views. COMPARISON: CR XR FOOT RT COMPLETE from 02/03/2023 FINDINGS: BONES: No acute fracture is present. No bony destructive lesion is seen. Apparent prior resection of the distal aspect of the proximal phalanx of the 5th toe. Enthesophyte at calcaneal tuberosity. JOINTS: No dislocation present. Mild degenerative changes 1st MTP joint. Mild 1st metatarsal varus and hallux valgus. SOFT TISSUE: Normal. IMPRESSION: Mild hallux valgus. DATA REPOSITORY: RADIATION DOSE DELIVERED:
== END ==
PROVIDERS: PCP Student in an Organized Health Care Education/Training Program; Visit Provider Podiatrist
DX: M79.671 Pain in right foot (principal); M20.22 Hallux rigidus, left foot; M20.42 Other hammer toe(s) (acquired), left foot; M20.12 Hallux valgus (acquired), left foot; M77.31 Calcaneal spur, right foot
CPT/HCPCS: 73630

== ENCOUNTER 2024-05-31 09:48 | Outpatient (CLI) | payer OTHER, SELFPAY | END 2024-05-31 09:49 | disposition home or self-care (01) | LOC: DI.CARD 09:49 | PROVIDERS: PCP Family Medicine; Visit Provider Internal Medicine Cardiovascular Disease | CPT/HCPCS: 93010 ==

== ENCOUNTER 2024-06-05 08:27 | Outpatient (CLI) | payer OTHER, SELFPAY ==
--- NOTE | 2024-06-05 08:15 | RT.EKG_ITS ---
APPROVED REPORT Exam: Resting ECG Reason for Exam: SVT Patient Location: O HR:60 bpm ECG Measurements Heart Rate 60 AXIS VA 143 P 16 QRSd 88 QRS 36 QT 399 T 17 QTc 399 Conclusion Sinus rhythm...normal P axis, V-rate 50- 99 Atrial premature complexes...SV complexes w/ short R-R intvls Otherwise normal ECG
== END 2024-06-05 08:28 | disposition home or self-care (01) ==
LOC: DI.CARD 08:28
PROVIDERS: PCP Family Medicine; Visit Provider Internal Medicine Cardiovascular Disease
DX: I47.10 Supraventricular tachycardia, unspecified (principal)
CPT/HCPCS: 93010

== ENCOUNTER 2024-08-20 10:57 | Outpatient (CLI) | payer OTHER, SELFPAY ==
[2024-08-20 18:43] LABS: PSA, Screening 0.4 ng/mL (<=4.5)
== END 2024-08-20 10:58 | disposition home or self-care (01) ==
LOC: LBO 10:57
PROVIDERS: PCP Family Medicine; Visit Provider Nurse Practitioner Gerontology
DX: R39.9 Unspecified symptoms and signs involving the genitourinary system (principal)
CPT/HCPCS: 36415; 84153

== ENCOUNTER → 2025-02-13 00:38 | Outpatient (CLI) | payer MEDICARE, OTHER, SELFPAY ==
--- NOTE | 2025-02-13 12:30 | DI.US_ITS ---
APPROVED REPORT EXAM: Comprehensive 2D, Doppler, and color-flow Echocardiogram Patient Location: Out-Patient [employer] Operator: Alondra Rutherford RDCS (AE) Indications: Check aortic regurgitation Other Information Study Quality: Good Conclusion Normal left ventricular wall thickness and chamber size. Ejection fraction is 60 to 65%. Wall motion is normal Normal right ventricular size and function Mildly enlarged left atrium. Normal right atrial size Aortic valve is trileaflet with mild regurgitation Estimated right ventricular systolic pressure is 36 mmHg Ascending aorta measures 4 cm Wall motion Left Ventricle The left ventricle is normal size. The left ventricular systolic function is normal. The left ventricular ejection fraction is within the normal range. There is normal left ventricular wall thickness. There is normal LV segmental wall motion. There is no ventricular septal defect visualized. LVEF is 60-65%. Right Ventricle The right ventricle is normal size. The right ventricular systolic function is normal. Atria Left atrium is mildly dilated. The right atrium size is normal. The interatrial septum is intact with no evidence for an atrial septal defect. Aortic Valve The aortic valve is normal in structure. Aortic valve is trileaflet. There is no aortic valvular stenosis. Mild aortic regurgitation. Mitral Valve The mitral valve is normal in structure. No evidence of mitral valve stenosis. Trace mitral regurgitation. Tricuspid Valve The tricuspid valve is normal in structure. There is no tricuspid valve stenosis. Trace to mild tricuspid regurgitation. The RVSP is 35.6 mmHg. Pulmonic Valve The pulmonary valve is normal in structure. There is no pulmonic valvular stenosis. Trace pulmonic regurgitation. Great Vessels Aortic root is moderately dilated. The ascending aorta is moderately dilated. Aortic arch is normal in caliber. IVC is normal in size and collapses >50% with inspiration. Pericardium There is no pericardial effusion. 2D Dimensions IVSD d PLAX 0.90 cm M: 0.6-1.2 Ao Root d 4.16 cm M: 3.1 - 3.7 LVPW d PLAX 0.90 cm M: 0.6 - 1.2 Ao Asc Diam d 4.00 cm M: 2.6 - 3.4 LVID d PLAX 4.91 cm M: 4.2 - 5.8 LVDs 3.33 cm M: 2.5 - 4.0 LV EF Teichholz 60.1 % FS 32.09 % LV EDV (Teich) 113.2 mL LV ESV (Teich) 45.2 mL M-Mode TAPSE 2.55 cm (M/F) >1.7 Auto EF LV EDV A4C 95.1 mL LV EDV A2C 117.2 mL LV EDV BP 107.4 mL LV ESV A4C 38.3 mL LV ESV A2C 41.0 mL LV ESV BP 40.3 mL LVEF(%) A4C 59.7 % LVEF(%) A2C 65.0 % LVEF(%) BP 62.5 % LV SV A4C 56.8 ml LV SV A2C 76.1 ml LV SV BP 67.1 ml LV CO A4C 3.4 L/min LV CO A2C 3.8 L/min LV CO BP 3.6 L/min HR A4C 59.22 BPM HR A2C 49.44 BPM LV EDV Index (BP) LA Volume LA Length A4C 5.6 cm LA Length A2C 5.9 cm LA Area A4C s 19.11 cm2 LA Area A2C s 23.75 cm2 LA Vol A4C A-L 55.53 mL LA Vol A2C A-L 81.19 mL LA Vol Biplane A-L 69.0 mL LA Vol/BSA A4C A-L LA Vol/BSA A2C A-L LA Vol/BSA BP A-L 38.8 mL/m2 LA Vol A4C MOD 52.5 mL LA Vol A2C MOD 75.3 mL LA Vol BP MOD 64.5 mL RA Volume RA Area A4C 15.7 cm2 RA ESV A4C (A-L) 35.9mL RA Vol/BSA A4C A-L RA Length A4C 5.8 cm RA ESV A4C (MOD) 34.1mL LV Diastology MV E' medial 0.118 (>0.07 m/s) MV E Vmax 0.88 (0.4-1.3 m/s) MV E/E' MED 7.46 (<14) MV A Vmax 0.50 (0.4-1.3 m/s) MV E' lateral 0.087 (>0.1 m/s) E/A Ratio 1.8 MV E/E' LAT 10.13 (<14) MV E' Average 0.103 m/s MV E/E'(average) 8.59 Aortic Valve AoV Vmax 1.43 m/s LVOT Vmax 1.13 m/s AoV Peak Grad 44.4 mmHg LVOT Peak Grad 5.1 mmHg AoV Area (Vmax) 2.42 cm2 LVOT VTI 0.242 m AoV VTI 0.304 m LVOT Mean Grad 2.6 mmHg AoV Mean [place]. 0.94 m/s LVOT SV 74.35 mL AoV Mean Grad 4.1 mmHg LVOT Diam s 1.95 cm AoV Area (VTI) 2.44 cm2 AV Regurg Peak Gr. 8.23 mmHg Velocity Ratio 0.79 AR Decel [place] 1.2m/sec2 AR DT 3611 msec AR PHT 1047 msec AR Vmax 4.49 m/s Mitral Valve MV DT 233 (160-240 msec) MV Vmax TIPS 0.94 m/s MV Mean Grad 1.3 (<2mmHg) MV VTI 0.271 m Pulmonary Valve PV Vmax 0.95 (0.5-1.5 m/s) RVOT Vmax 0.68 m/s PV Peak Grad 3.6 mmHg RVOT Peak Gr. 1.8 mmHg PV Mean [place] 0.66 m/s RVOT VTI 0.159 m PV Mean Grad 2.0 mmHg RVOT Mean Gr. 1.1 mmHg Tricuspid Valve RA Pressure 3.00 mmHg TR Vmax 2.85 m/s TV S' 0.16 m/s TR Peak Grad 32.6 mmHg RVSP (TR) 35.6 mmHg
== END ==
LOC: DI 00:38
PROVIDERS: PCP Family Medicine; Visit Provider Internal Medicine Cardiovascular Disease
DX: I51.7 Cardiomegaly (principal)
CPT/HCPCS: 93306

== ENCOUNTER → 2025-03-08 09:32 | Outpatient (BNVA) | payer MEDICARE, OTHER, SELFPAY | PROVIDERS: PCP Family Medicine; Referring Provider Family Medicine; Visit Provider Internal Medicine Cardiovascular Disease | DX: I35.1 Nonrheumatic aortic (valve) insufficiency (principal); I47.10 Supraventricular tachycardia, unspecified | CPT/HCPCS: 99214 ==